=== PATIENT | male | born 1955 | race Caucasian/White ===

== ENCOUNTER → 2017-03-13 | Outpatient (CLI) | payer OTHER ==
[~2017-03-13] MED LIST: LISI10TA4 PO; LIVA4TAB PO; VENTAER IN
== END ==
LOC: M LAB 10:03
PROVIDERS: ATTEND Urology
DX: R97.20 Elevated prostate specific antigen [PSA] (principal)

== ENCOUNTER 2017-03-20 09:35 | Day surgery (SDC) | payer OTHER ==
[~2017-03-20] VITALS: Ht 175.3 cm; Wt 80.7 kg
[2017-03-20] MEDS ORDERED: NS 1,000 ML IV ONE (10:30)
[2017-03-20] MEDS ORDERED: PROPOFOL 200 MG/20 ML VIAL As Ordered ONE (11:21)
--- NOTE | 2017-03-20 12:21 | ROOR ---
Patient Name: Gopal Boston Procedure Date: 03/20/2017 12:03 PM Date of : 1955 Age: 62 Room: [facility] Gender: Male Note Status: Finalized Procedure: Colonoscopy Indications: Screening for colorectal malignant neoplasm Providers: Mynor JOSHI MD Referring MD: URBANO FERMIN Requesting Provider: Medicines: Monitored Anesthesia Care Complications: No immediate complications. Procedure: Pre-Anesthesia Assessment: - The heart rate, respiratory rate, oxygen saturations, blood pressure, adequacy of pulmonary ventilation, and response to care were monitored throughout the procedure. The Colonoscope was introduced through the anus and advanced to the cecum, identified by appendiceal orifice and ileocecal valve. The colonoscopy was performed without difficulty. The patient tolerated the procedure well. The quality of the bowel preparation was good. Findings: The perianal and digital rectal examinations were normal. Two sessile polyps were found in the sigmoid colon and ascending colon. The polyps were diminutive in size. These polyps were removed with a cold snare. Resection and retrieval were complete. Small Internal Hemorrhoids. The exam was otherwise without abnormality on direct and retroflexion views. Impression: - Two diminutive polyps in the sigmoid colon and in the ascending colon, removed with a cold snare. Resected and retrieved. - Small Internal Hemorrhoids. - The colon examination was otherwise normal on direct and retroflexion views. Recommendation: - Repeat colonoscopy in 5 years for surveillance. - Telephone endoscopist for pathology results in 2 weeks. Mynor Joshi MD Mynor JOSHI MD 03/20/2017 12:20:40 PM This report has been signed electronically. Number of Addenda: 0 Note Initiated On: 03/20/2017 12:03 PM Estimated Blood Loss: Estimated blood loss: none.
[2017-03-20 12:40] VITALS: BP 122/76
== END 2017-03-20 12:51 | disposition home or self-care (01) ==
LOC: M OPP 09:35
PROVIDERS: ATTEND Internal Medicine Gastroenterology
DX: Z12.11 Encounter for screening for malignant neoplasm of colon (principal); D12.5 Benign neoplasm of sigmoid colon; D12.2 Benign neoplasm of ascending colon; K64.8 Other hemorrhoids; I10 Essential (primary) hypertension; E78.5 Hyperlipidemia, unspecified; J45.909 Unspecified asthma, uncomplicated; Z91.013 Allergy to seafood; Z79.899 Other long term (current) drug therapy; Z80.9 Family history of malignant neoplasm, unspecified

== ENCOUNTER → 2017-09-21 | Outpatient (CLI) | payer OTHER ==
[2017-09-21 09:48] LABS: PROSTATIC SPECIFIC AG MONITOR 4.96 NG/ML (< 4.0)
[2017-09-26 00:07] LABS: PSA % FREE 17.7 % (.); PSA FREE 0.78 ng/mL; PSA TOTAL 4.4 ng/mL (0.0-4.0)
== END ==
LOC: M LAB 08:46
DX: R97.20 Elevated prostate specific antigen [PSA] (principal)

== ENCOUNTER → 2018-09-23 | Outpatient (CLI) | payer OTHER ==
--- NOTE | 2018-09-24 02:23 | REP ---
Clinical: Right shoulder pain. Technique: Internal rotation, external rotation, and Y view of the right shoulder. Findings: Cortical irregularity and subtle spurring at the acromioclavicular joint noted. Blunting of the glenoid rim is identified with suggestions for small spur along the superior/12 o'clock position of the glenoid rim. Humeral head appears normal. Subacromial space is normal. No periarticular calcifications or loose bodies identified. No acute fracture or dislocation. Impression: Mild arthritic degenerative changes. Electronically Signed by Rom Livingston MD 09/24/2018 02:15 A
== END ==
LOC: M RAD 11:33
PROVIDERS: ATTEND Physician Assistant
DX: M19.011 Primary osteoarthritis, right shoulder (principal)

== ENCOUNTER 2019-07-09 17:54 | Emergency (ER) | payer OTHER ==
[~2019-07-09] VITALS: Ht 175.3 cm; Wt 87.8 kg
[~2019-07-09 17:54] MED LIST changes: +HYDR-4571 PO; -VENTAER IN; +VENTAER INH
[2019-07-09] MEDS ORDERED: NAPR220C14 PO (18:01)
[2019-07-09] MEDS ORDERED: NS 1,000 ML IV SCH (18:17)
[2019-07-09 18:58] LABS: BASO # 0.1 10^3/uL (0.0-0.2); EOS # 0.3 10^3/uL (0.0-0.5); EOS % 3.8 % (0.0-3.0); HEMATOCRIT 48.1 % (42.0-52.0); HEMOGLOBIN 16.4 g/dl (13.5-17.5); LYMPH # 2.7 10^3/uL (1.5-5.0); LYMPH % 40.1 % (24.0-44.0); MEAN CORPUSCULAR HEMOGLOBIN 30.1 pg (27.0-33.0); MEAN CORPUSCULAR HGB CONC 34.1 g/dl (32.0-36.5); MEAN CORPUSCULAR VOLUME 88.4 fl (80.0-96.0); MONO # 0.5 10^3/uL (0.0-0.8); MONO % 7.6 % (0.0-5.0); NEUTROPHILS # 3.2 10^3/uL (1.5-8.5); NEUTROPHILS % 47.2 % (36.0-66.0); PLATELET COUNT, AUTOMATED 276 10^3/uL (150-450); RED BLOOD COUNT 5.44 10^6/uL (4.30-6.10); WHITE BLOOD COUNT 6.8 10^3/uL (4.0-10.0)
[2019-07-09 19:09] LABS: ALT/SGPT 42 U/L (12-78); BILIRUBIN,DIRECT < 0.1 MG/DL (0.0-0.2); BILIRUBIN,TOTAL 0.4 MG/DL (0.2-1.0); BLOOD UREA NITROGEN 8 MG/DL (7-18); CALCIUM LEVEL 8.6 MG/DL (8.8-10.2); CARBON DIOXIDE LEVEL 29 MEQ/L (21-32); CHLORIDE LEVEL 105 MEQ/L (98-107); CREATININE FOR GFR 0.94 MG/DL (0.70-1.30); GLOMERULAR FILTRATION RATE > 60.0 (>49); GLUCOSE, FASTING 90 MG/DL (70-100); LIPASE 113 U/L (73-393); POTASSIUM SERUM 3.7 MEQ/L (3.5-5.1); SODIUM LEVEL 139 MEQ/L (136-145)
[2019-07-09] MEDS: GASTROGRAFIN SOLUTION 30ML PO SCH ×2 (19:18→19:54)
[2019-07-09] MEDS ORDERED: ISOVUE-370 76% 100ML VIAL (Q9967) As Ordered ONE (20:35)
--- NOTE | 2019-07-09 21:02 | REPVR ---
PROCEDURE INFORMATION: Exam: CT Abdomen And Pelvis With Contrast Exam date and time: 07/09/2019 8:33 PM Age: 64 years old Clinical indication: Abdominal pain; Generalized; Additional info: Llq pain TECHNIQUE: Imaging protocol: Computed tomography of the abdomen and pelvis with intravenous contrast. Radiation optimization: All CT scans at this facility use at least one of these dose optimization techniques: automated exposure control; mA and/or kV adjustment per patient size (includes targeted exams where dose is matched to clinical indication); or iterative reconstruction. Contrast material: ISOVUE 370; Contrast volume: 100 ml; Contrast route: IV; COMPARISON: CT ABD PELVIS WITH CONTRAST 04/01/2019 8:22 PM FINDINGS: Liver: Normal. No mass. Gallbladder and bile ducts: Normal. No calcified stones. No ductal dilation. Pancreas: Normal. No ductal dilation. Spleen: Normal. No splenomegaly. Adrenals: Normal. No mass. Kidneys and ureters: Small cyst upper pole right kidney measures 8 mm. Left renal cyst measures 1.9 cm. No complex features. Nonobstructive calculus mid to lower pole left kidney measures 10 mm. Stomach and bowel: There is a diffusely boggy appearance of the left colon with mural stratification and an ahasutral countour. There are pericolonic inflammatory changes. Findings consistent with acute colitis. No abscess demonstrated. Appendix: No evidence of appendicitis. Intraperitoneal space: Unremarkable. No free air. No significant fluid collection. Vasculature: Unremarkable. No abdominal aortic aneurysm. Lymph nodes: Unremarkable. No enlarged lymph nodes. Bladder: Unremarkable as visualized. Reproductive: The prostate gland demonstrates mild hyperplasia. Bones/joints: Mild central spinal stenosis L2-L3 and moderate central spinal stenosis L4-L5.There is a diffuse decrease in hepatic parenchymal density, consistent with steatosis. Soft tissues: There is a small umbilical hernia. There is no evidence of incarceration. IMPRESSION: 1. Mild central spinal stenosis L2-L3 and moderate central spinal stenosis L4-L5. 2. There is a diffuse decrease in hepatic parenchymal density, consistent with steatosis. 3. Small cyst upper pole right kidney measures 8 mm. Left renal cyst measures 1.9 cm. No complex features. No follow-up suggested. 4. Mild prostatic hyperplasia. 5. There is a diffusely boggy appearance of the left colon with mural stratification and an ahasutral countour. There are pericolonic inflammatory changes. Findings consistent with acute colitis. No abscess demonstrated. Electronically signed by: Fernando Wyatt On 07/09/2019 21:02:04 PM
[2019-07-09] MEDS ORDERED: metroNIDAZOLE (FLAGYL) 500 MG TAB PO ONE (21:15)
[2019-07-09] MEDS ORDERED: CIPROFLOXACIN 500 MG TAB PO ONE (21:15)
[2019-07-09] MEDS ORDERED: FLAG500T PO (21:22)
[2019-07-09] MEDS ORDERED: CIPR-249 PO (21:22)
[2019-07-09 21:45] VITALS: BP 139/88
== END 2019-07-09 21:47 | disposition home or self-care (01) ==
LOC: M ED 17:54
DX: K52.9 Noninfective gastroenteritis and colitis, unspecified (principal); I10 Essential (primary) hypertension; E78.5 Hyperlipidemia, unspecified; Z79.899 Other long term (current) drug therapy; Z91.018 Allergy to other foods
CPT/HCPCS: 74177; 80048; 80076; 81001; 83690; 85025; 93041; 96360; 96361; 99284; Q9963; Q9967

== ENCOUNTER → 2020-05-04 | Outpatient (CLI) | payer SELFPAY ==
[~2020-05-04] MED LIST changes: +CIPR-249 PO; +FLAG500T PO; +NAPR220C14 PO
== END ==
LOC: M LABSMTC 11:10
PROVIDERS: ATTEND Pediatrics
DX: Z20.828 Contact with and (suspected) exposure to other viral communicable diseases (principal)

== ENCOUNTER → 2022-11-23 | Outpatient (CLI) | payer MEDICARE, OTHER ==
[~2022-11-23] MED LIST changes: +LISI10TA22 PO; -LISI10TA4 PO
== END ==
LOC: M WUC 14:26
PROVIDERS: ATTEND Family Medicine
DX: M54.50 Low back pain, unspecified (principal); M51.36 Other intervertebral disc degeneration, lumbar region; M85.88 Other specified disorders of bone density and structure, other site

== ENCOUNTER 2023-12-30 12:26 | Emergency (ER) | payer MEDICARE, OTHER ==
[~2023-12-30] VITALS: Ht 177.8 cm; Wt 87.7 kg
[2023-12-30 14:12] LABS: BASO # 0.1 10^3/uL (0.0-0.2); EOS # 0.3 10^3/uL (0.0-0.5); EOS % 4.6 % (0.0-3.0); HEMOGLOBIN 15.9 g/dl (13.5-17.5); LYMPH # 2.5 10^3/uL (1.5-5.0); LYMPH % 35.5 % (24.0-44.0); MEAN CORPUSCULAR HEMOGLOBIN 30.1 pg (27.0-33.0); MEAN CORPUSCULAR HGB CONC 33.8 g/dl (32.0-36.5); MONO # 0.5 10^3/uL (0.0-0.8); MONO % 7.7 % (2.0-8.0); NEUTROPHILS # 3.6 10^3/uL (1.5-8.5); NEUTROPHILS % 50.9 % (36.0-66.0); PLATELET COUNT, AUTOMATED 292 10^3/uL (150-450); RED BLOOD COUNT 5.28 10^6/uL (4.30-6.10)
[2023-12-30] MEDS ORDERED: ISOVUE-370 76% 100ML VIAL As Ordered ONE (14:23)
[2023-12-30 14:43] LABS: ALBUMIN 4.2 G/DL (3.2-5.2); BILIRUBIN,DIRECT 0.2 MG/DL (<0.4); BILIRUBIN,TOTAL 0.6 MG/DL (0.3-1.2); TOTAL PROTEIN 7.6 G/DL (5.7-8.2)
[2023-12-30 17:06] VITALS: BP 140/83; TEMP 96.3; O2SAT 97
== END 2023-12-30 17:10 | disposition home or self-care (01) ==
LOC: M ED 12:26
DX: N20.0 Calculus of kidney (principal); R10.32 Left lower quadrant pain; I10 Essential (primary) hypertension; E78.5 Hyperlipidemia, unspecified; Z91.013 Allergy to seafood; Z79.899 Other long term (current) drug therapy
CPT/HCPCS: 36415; 74177; 80047; 80076; 81001; 83690; 85025; 99284; Q9967

== ENCOUNTER 2024-01-03 10:18 | Emergency (ER) | payer MEDICARE, OTHER ==
[~2024-01-03] VITALS: Ht 177.8 cm; Wt 87.8 kg
[2024-01-03 11:51] LABS: BASO # 0.1 10^3/uL (0.0-0.2); BASO % 0.5 % (0.0-1.0); EOS # 0.2 10^3/uL (0.0-0.5); EOS % 2.2 % (0.0-3.0); HEMATOCRIT 45.9 % (42.0-52.0); HEMOGLOBIN 15.5 g/dl (13.5-17.5); LYMPH # 2.2 10^3/uL (1.5-5.0); LYMPH % 20.4 % (24.0-44.0); MEAN CORPUSCULAR HGB CONC 33.8 g/dl (32.0-36.5); MEAN CORPUSCULAR VOLUME 88.8 fl (80.0-96.0); MONO # 0.8 10^3/uL (0.0-0.8); MONO % 7.3 % (2.0-8.0); NEUTROPHILS # 7.5 10^3/uL (1.5-8.5); NEUTROPHILS % 69.3 % (36.0-66.0); PLATELET COUNT, AUTOMATED 264 10^3/uL (150-450); RED BLOOD COUNT 5.17 10^6/uL (4.30-6.10); WHITE BLOOD COUNT 10.8 10^3/uL (4.0-10.0)
[2024-01-03 12:11] LABS: ALBUMIN 4.2 G/DL (3.2-5.2); BILIRUBIN,DIRECT 0.2 MG/DL (<0.4); BILIRUBIN,TOTAL 0.5 MG/DL (0.3-1.2); CALCIUM LEVEL 8.9 MG/DL (8.3-10.6); CREATININE FOR GFR 1.41 MG/DL (0.70-1.30); GLOMERULAR FILTRATION RATE 53.2 (>49); POTASSIUM SERUM 4.4 MMOL/L (3.5-5.1); TOTAL PROTEIN 7.7 G/DL (5.7-8.2)
[2024-01-03] MEDS: ONDANSETRON 4MG 2ML VIAL IV ONE (12:19)
[2024-01-03] MEDS: NS 500 ML IV ONE (12:19)
[2024-01-03] MEDS: KETOROLAC 30 MG/ML 1ML VIAL IV ONE (12:20)
[2024-01-03] MEDS ORDERED: ONDA-282 PO (14:16)
[2024-01-03] MEDS ORDERED: FLOM0.4C39 PO (14:16)
[2024-01-03] MEDS ORDERED: PERC5TAB12 PO (14:16)
[2024-01-03] MEDS ORDERED: KETO10TAB PO (14:16)
[2024-01-03 14:18] VITALS: BP 170/85; TEMP 98.6; O2SAT 99
== END 2024-01-03 14:33 | disposition home or self-care (01) ==
LOC: M ED 10:18
DX: N20.1 Calculus of ureter (principal); I10 Essential (primary) hypertension; E78.5 Hyperlipidemia, unspecified; N40.0 Benign prostatic hyperplasia without lower urinary tract symptoms; Z91.013 Allergy to seafood; Z79.2 Long term (current) use of antibiotics; Z79.899 Other long term (current) drug therapy
CPT/HCPCS: 74176; 80048; 80076; 81001; 83690; 85025; 96374; 96375; 99283; J1885; J2405

== ENCOUNTER 2024-01-04 22:04 | Emergency (ER) | payer MEDICARE, OTHER ==
[~2024-01-04] VITALS: Ht 177.8 cm; Wt 88.1 kg
[~2024-01-04 22:04] MED LIST changes: +FLOM0.4C39 PO; +KETO10TAB PO; +ONDA-282 PO; +PERC5TAB12 PO
[2024-01-04 23:20] LABS: BASO % 0.4 % (0.0-1.0); EOS # 0.2 10^3/uL (0.0-0.5); EOS % 1.8 % (0.0-3.0); HEMOGLOBIN 14.2 g/dl (13.5-17.5); LYMPH # 2.2 10^3/uL (1.5-5.0); LYMPH % 23.9 % (24.0-44.0); MEAN CORPUSCULAR HGB CONC 33.8 g/dl (32.0-36.5); MEAN CORPUSCULAR VOLUME 88.8 fl (80.0-96.0); MONO # 0.8 10^3/uL (0.0-0.8); MONO % 8.4 % (2.0-8.0); NEUTROPHILS # 5.9 10^3/uL (1.5-8.5); NEUTROPHILS % 65.3 % (36.0-66.0); PLATELET COUNT, AUTOMATED 245 10^3/uL (150-450); RED BLOOD COUNT 4.73 10^6/uL (4.30-6.10); WHITE BLOOD COUNT 9.1 10^3/uL (4.0-10.0)
[2024-01-04 23:38] LABS: LIPASE 29 U/L (12-53)
[2024-01-05 00:03] LABS: ALKALINE PHOSPHATASE 46 U/L (46-116); ALT/SGPT 23 U/L (7.0-40); AST/SGOT 19 U/L (<34); BILIRUBIN,DIRECT 0.3 MG/DL (<0.4); BLOOD UREA NITROGEN 9 MG/DL (9-23); CALCIUM LEVEL 8.6 MG/DL (8.3-10.6); CARBON DIOXIDE LEVEL 29 MMOL/L (20-31); CHLORIDE LEVEL 104 MMOL/L (98-107); CREATININE FOR GFR 1.07 MG/DL (0.70-1.30); GLOMERULAR FILTRATION RATE > 60.0 (>49); GLUCOSE, FASTING 101 MG/DL (74-106); POTASSIUM SERUM 3.9 MMOL/L (3.5-5.1); SODIUM LEVEL 137 MMOL/L (136-145); TOTAL PROTEIN 7.3 G/DL (5.7-8.2)
[2024-01-05] MEDS: LIDOCAINE 2% 5ML JELLY UROJET TOP ONE (05:05)
[2024-01-05 05:36] VITALS: BP 148/84; TEMP 98; O2SAT 96
[2024-01-16] MEDS ORDERED: LEVO1TAB39 PO (08:10)
[2024-01-16] MEDS ORDERED: FINA1TAB4 PO (08:10)
== END 2024-01-05 07:14 | disposition home or self-care (01) ==
LOC: M ED 22:04
DX: N13.2 Hydronephrosis with renal and ureteral calculous obstruction (principal); R33.9 Retention of urine, unspecified; I10 Essential (primary) hypertension; E78.5 Hyperlipidemia, unspecified; Z91.013 Allergy to seafood; Z79.2 Long term (current) use of antibiotics; Z79.899 Other long term (current) drug therapy
CPT/HCPCS: 36415; 51702; 80048; 80076; 81001; 83690; 85025; 99284; G0463

== ENCOUNTER → 2024-01-07 | Outpatient (CLI) | payer MEDICARE, OTHER | LOC: M RAD 14:25 | PROVIDERS: ATTEND Nurse Practitioner Family | DX: Z01.818 Encounter for other preprocedural examination (principal) ==

== ENCOUNTER → 2024-01-08 | Outpatient (REF) | payer MEDICARE, OTHER ==
[~2024-01-08] MED LIST changes: +FINA1TAB4 PO; +LEVO1TAB39 PO
== END ==
LOC: M SMT 14:54
PROVIDERS: ATTEND Nurse Practitioner Family
DX: Z01.812 Encounter for preprocedural laboratory examination (principal); Z79.899 Other long term (current) drug therapy

== ENCOUNTER → 2024-01-09 | Outpatient (CLI) | payer MEDICARE, OTHER ==
[~2024-01-09] MED LIST changes: -FINA1TAB4 PO; -LEVO1TAB39 PO
== END ==
LOC: M LAB 12:11 → M EKG 12:11
PROVIDERS: ATTEND Nurse Practitioner Family
DX: Z01.818 Encounter for other preprocedural examination (principal); I25.2 Old myocardial infarction; I45.10 Unspecified right bundle-branch block

== ENCOUNTER 2024-01-18 06:05 | Day surgery (SDC) | payer MEDICARE, OTHER ==
[~2024-01-18] VITALS: Ht 177.8 cm; Wt 84.6 kg
[~2024-01-18 06:05] MED LIST changes: +FINA1TAB4 PO; +LEVO1TAB39 PO
[2024-01-18] MEDS ORDERED: LR 1,000 ML IV SCH ×2 (06:10→08:40)
[2024-01-18] MEDS ORDERED: ACETAMINOPHEN 1000MG 100ML IV BAG As Ordered ONE (06:46)
[2024-01-18] MEDS ORDERED: MIDAZOLAM INJ 2MG/2ML VIAL As Ordered ONE (06:46)
[2024-01-18] MEDS ORDERED: fentaNYL 100 MCG/2 ML INJECTION As Ordered ONE (06:46)
[2024-01-18] MEDS ORDERED: LIDOCAINE 2% 100MG/5ML SDV (FOR ANES.) As Ordered ONE (06:46)
[2024-01-18] MEDS ORDERED: ONDANSETRON 4MG 2ML VIAL As Ordered ONE (06:46)
[2024-01-18] MEDS ORDERED: propofoL 200 MG/20 ML VIAL As Ordered ONE (06:46)
[2024-01-18] MEDS: ceFAZolin SOD 2 GM in IV 1 EA IV ONE (07:44)
[2024-01-18] MEDS: ISOVUE-300 61% 100ML VIAL As Ordered ONE (08:05)
[2024-01-18] MEDS ORDERED: ONDANSETRON 4MG 2ML VIAL IV PRN (08:40)
[2024-01-18] MEDS ORDERED: oxyCODONE 5MG TAB PO PRN (08:40)
[2024-01-18] MEDS ORDERED: fentaNYL 100 MCG/2 ML INJECTION IV PRN (08:40)
[2024-01-18] MEDS ORDERED: HYDROMORPHONE HCL 0.5 MG/ 0.5 ML SYRINGE IV PRN (08:40)
[2024-01-18] MEDS ORDERED: FLOM0.4C39 PO (09:02)
[2024-01-18] MEDS ORDERED: PERCOCET 5MG/325MG TAB PO PRN (10:55)
[2024-01-18] MEDS ORDERED: CEPH500C PO (10:59)
[2024-01-18 11:18] VITALS: BP 137/80; TEMP 98.4; O2SAT 98
== END 2024-01-18 11:24 | disposition home or self-care (01) ==
LOC: M SDC 06:05
PROVIDERS: ATTEND Urology
DX: N20.2 Calculus of kidney with calculus of ureter (principal); R33.9 Retention of urine, unspecified; N40.1 Benign prostatic hyperplasia with lower urinary tract symptoms; Z91.013 Allergy to seafood; Z79.899 Other long term (current) drug therapy
CPT/HCPCS: 52332; 52352; 76000; 82365; C1769; C1894; C2617; J0131; J0690; J2250; J2405; J3010; Q9967

== ENCOUNTER → 2024-02-15 | Outpatient (REF) | payer MEDICARE, OTHER ==
[~2024-02-15] MED LIST changes: +ALBU8.5H INH; +CEPH500C PO; +TAMS1CAP17 PO
== END ==
LOC: M SMT 12:37
PROVIDERS: ATTEND Urology
DX: Z01.818 Encounter for other preprocedural examination (principal); N40.1 Benign prostatic hyperplasia with lower urinary tract symptoms; N39.0 Urinary tract infection, site not specified

== ENCOUNTER 2024-02-22 10:58 | Day surgery (SDC) | payer MEDICARE, OTHER ==
[~2024-02-22] VITALS: Ht 177.8 cm; Wt 83.6 kg
[2024-02-22] MEDS ORDERED: LR 1,000 ML IV SCH (11:15)
[2024-02-22] MEDS ORDERED: MIDAZOLAM INJ 2MG/2ML VIAL As Ordered ONE (13:48)
[2024-02-22] MEDS ORDERED: ONDANSETRON 4MG 2ML VIAL As Ordered ONE (13:48)
[2024-02-22] MEDS ORDERED: propofoL 200 MG/20 ML VIAL As Ordered ONE (13:48)
[2024-02-22] MEDS ORDERED: fentaNYL 100 MCG/2 ML INJECTION As Ordered ONE (13:48)
[2024-02-22] MEDS ORDERED: LIDOCAINE 2% 100MG/5ML SDV (FOR ANES.) As Ordered ONE (13:48)
[2024-02-22] MEDS: ceFAZolin SOD 2 GM in IV 1 EA IV ONE (14:01)
[2024-02-22] MEDS: LIDOCAINE 2% 5ML JELLY UROJET As Ordered ONE (14:26)
[2024-02-22] MEDS ORDERED: HYDROmorphone HCL 2MG/ML 1ML VIAL As Ordered ONE (15:01)
[2024-02-22] MEDS ORDERED: FUROSEMIDE 100MG/10ML VIAL As Ordered ONE (15:18)
[2024-02-22] MEDS ORDERED: ONDANSETRON 4MG 2ML VIAL IV PRN (15:40)
[2024-02-22] MEDS ORDERED: oxyCODONE 5MG TAB PO PRN (15:40)
[2024-02-22] MEDS ORDERED: fentaNYL 100 MCG/2 ML INJECTION IV PRN (15:40)
[2024-02-22] MEDS ORDERED: ACETAMINOPHEN 325 MG TAB PO PRN (16:00)
[2024-02-22 17:02] VITALS: BP 152/76; TEMP 97.6; O2SAT 97
== END 2024-02-22 17:23 | disposition home or self-care (01) ==
LOC: M SDC 10:58
PROVIDERS: ATTEND Urology
DX: N40.1 Benign prostatic hyperplasia with lower urinary tract symptoms (principal); R33.8 Other retention of urine; Z46.6 Encounter for fitting and adjustment of urinary device; Z87.442 Personal history of urinary calculi; I10 Essential (primary) hypertension; E78.00 Pure hypercholesterolemia, unspecified; J45.909 Unspecified asthma, uncomplicated; Z79.899 Other long term (current) drug therapy; Z91.013 Allergy to seafood; Z80.9 Family history of malignant neoplasm, unspecified
CPT/HCPCS: 52601; J0690; J1100; J1171; J1940; J2250; J2405; J3010